=== PATIENT | female | born 1965 | race Caucasian/White ===

== ENCOUNTER 2021-09-29 14:57 | Outpatient (CLI) | payer BC | END 2021-09-29 14:58 | disposition home or self-care (01) | LOC: CSHMAMMO 14:57 | PROVIDERS: ATTEND Family Medicine | DX: Z12.31 Encounter for screening mammogram for malignant neoplasm of breast (principal); Z80.3 Family history of malignant neoplasm of breast | CPT/HCPCS: 77063; 77067 ==

== ENCOUNTER 2022-12-19 14:48 | Outpatient (CLI) | payer BC | END 2022-12-19 14:49 | disposition home or self-care (01) | LOC: CSHMAMMO 14:48 | PROVIDERS: ATTEND Family Medicine | DX: Z12.31 Encounter for screening mammogram for malignant neoplasm of breast (principal); M85.852 Other specified disorders of bone density and structure, left thigh; Z80.3 Family history of malignant neoplasm of breast | CPT/HCPCS: 77063; 77067; 77080 ==

== ENCOUNTER 2024-01-24 14:57 | Outpatient (CLI) | payer BC | END 2024-01-24 14:58 | disposition home or self-care (01) | LOC: CSHMAMMO 14:57 | PROVIDERS: ATTEND Family Medicine | DX: Z12.31 Encounter for screening mammogram for malignant neoplasm of breast (principal); Z80.3 Family history of malignant neoplasm of breast | CPT/HCPCS: 77063; 77067 ==